=== PATIENT | male | born 1950 | race Hispanic/Latino ===

== ENCOUNTER 2017-06-29 12:37 | Outpatient (CLI) | payer MEDICARE, OTHER ==
--- NOTE | 2017-06-29 14:19 | XRay Report ---
XRAY LEFT SHOULDER THREE VIEWS: 06/29/17 12:37:00 CLINICAL: Pain FINDINGS: No fracture or dislocation. Mild glenohumeral joint arthritis with irregularity of the glenoid rim. Moderate acromioclavicular joint arthritis. The soft tissues are normal. IMPRESSION: Glenohumeral and acromioclavicular joint arthritis.
== END 2017-06-29 12:38 | disposition home or self-care (01) ==
LOC: SPVIMAG 12:37
PROVIDERS: ATTEND Orthopaedic Surgery Sports Medicine
DX: M19.012 Primary osteoarthritis, left shoulder (principal)